=== PATIENT | male | born 1990 | race Caucasian/White ===

== ENCOUNTER 2016-11-10 07:11 | Emergency (ER) | payer SELFPAY ==
[~2016-11-10] VITALS: Ht 167.6 cm; Wt 65.0 kg
[~2016-11-10 07:11] MED LIST: BACT800T5 PO; HYDR-3533 PO; KETO10 PO
[2016-11-10 07:18] VITALS: BP 124/66; PULSE 76; RESP 16; TEMP 98.1; O2SAT 98
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
[2016-11-10] MEDS ORDERED: ROBA750T PO (08:24)
[2016-11-10] MEDS ORDERED: NAPR500T PO (08:24)
== END 2016-11-10 08:42 | disposition home or self-care (01) ==
LOC: NEPB 07:11
DX: S49.82XA Other specified injuries of left shoulder and upper arm, initial encounter (principal); F17.210 Nicotine dependence, cigarettes, uncomplicated; F12.20 Cannabis dependence, uncomplicated; V29.88XA Motorcycle rider (driver) (passenger) injured in other specified transport accidents, initial encounter; Y93.9 Activity, unspecified; Y92.9 Unspecified place or not applicable; Y99.9 Unspecified external cause status
CPT/HCPCS: 73030; 99284